=== PATIENT | female | born 1950 | race Caucasian/White ===

== ENCOUNTER 2017-05-19 06:15 | Day surgery (SDC) | payer MEDICARE, OTHER ==
[2017-05-12 14:01] VITALS: BMI 23.6
[2017-05-19] MEDS ORDERED: ceFAZolin IN SWFI 2 GM/20 ML SYRINGE IVP ONE (06:22)
[2017-05-19] MEDS ORDERED: LACTATED RINGERS 1,000 ML IV SCH (06:22)
[2017-05-19] MEDS ORDERED: ceFAZolin 1,000 MG in SODIUM CHLORIDE 0.9% IRRIGATIO 250 ML IRRIGATION ONE (06:22)
[2017-05-19] MEDS ORDERED: MIDAZOLAM 2 MG/2 ML VIAL ONE ×2 (07:10→07:25)
[2017-05-19] MEDS ORDERED: MIDAZOLAM 2 MG/2 ML VIAL IV ONE (07:12)
[2017-05-19] MEDS: SODIUM CHLORIDE 0.9% 1,000 ML IV SCH (07:13)
[2017-05-19] MEDS ORDERED: fentaNYL (PF) 50 MCG/ML 2 ML AMP ONE (07:25)
[2017-05-19] MEDS ORDERED: ePHEDrine SULFATE/0.9% NACL/PF 50 MG/5 ML SYRINGE IV ONE (07:25)
[2017-05-19] MEDS ORDERED: IODIXANOL 320 MG/ML 100 ML IV ONE (07:48)
[2017-05-19] MEDS ORDERED: LIDOCAINE 1% INJ 10MG/ML (20 ML MDV) SQ ONE (08:06)
[2017-05-19] MEDS ORDERED: LIDOCAINE 1% INJ 10MG/ML (20 ML MDV) IM ONE (08:12)
[2017-05-19] MEDS ORDERED: ACETAMINOPHEN IV (For NPO) 1,000 MG in EMPTY BAG 1 BAG IVPB ONE (09:02)
--- NOTE | 2017-05-19 09:55 | PCN ---
PROCEDURE NOTE A 66-year-old female with nonischemic cardiomyopathy with chronic systolic dysfunction, class 3 CHF with bradycardia who underwent a dual-chamber ICD for primary prevention of sudden cardiac . Patient is brought to the EP lab in a fasting state. Written informed consent was obtained prior to the procedure. The left shoulder area was prepped and draped as per protocol. 1% lidocaine was used for local anesthesia. A 4 cm incision was made parallel to the deltopectoral groove, about 1.5 cm medial to it. The incision was carried down to the level of the pectoralis muscle. A subfascial pocket was made. Hemostasis was assured. The left axillary vein was accessed at two separate points under fluoroscopy and via appropriately-sized introducer sheaths, 2 leads were positioned in the right heart. The atrial lead was a [employer], model #1944, 52 cm length and serial number [id number]. This was positioned in the right atrial appendage. P waves 2.8 mV, pacing impedance 560 ohms, pacing threshold 0.75 V at 0.5 milliseconds. 10 V test is negative. The ICD lead was a [employer], model #7122Q, 58 cm in length and serial number [id number], positioned in the low RV septum. R-waves 12 mV, pacing impedance 690 ohms, pacing threshold 0.5 V at 0.5 milliseconds. 10 V test is negative. Both leads are secured to the underlying pectoralis fascia using 2 nonabsorbable sutures. Pocket was irrigated with antibiotic solution. Leads were connected to the generator. The [employer], model number [id number], serial #[id number]. Leads and the generator were then placed in subfascial pocket and the wound was closed in 3 layers and dressed per protocol. RESULT: Successful dual chamber pacemaker implantation for primary prevention of sudden cardiac and sick sinus syndrome. PLAN: Maximize beta blockers if patient can tolerate this. Reduce amiodarone to 100 mg p.o. daily. Please note, DFT testing was deferred and will be performed in about 3 months after maximization of beta blockers now that she has the option for atrial pacing. MMODL / IJN: [id number] /
[2017-05-19] MEDS: HYDROcodone/APAP 5-325MG 1 EACH TAB PO PRN ×3 (10:44→19:45)
[2017-05-19] MEDS: ACETAMINOPHEN TAB 325 MG TAB PO PRN ×2 (14:41→22:37)
[2017-05-19] MEDS: SPIRONOLACTONE 25 MG TAB PO SCH (14:42)
[2017-05-19] MEDS: ceFAZolin IN SWFI 2 GM/20 ML SYRINGE IVP SCH ×2 (14:43→19:46)
[2017-05-19] MEDS ORDERED: IPRATROPIUM-ALBUTEROL 3 ML NEB INHALATION PRN (17:55)
--- NOTE | 2017-05-19 17:55 | P.CNPUL ---
History of Present Illness Consult date: 05/19/17 Requesting physician: Aravind Isaac Reason for consult: COPD Chief complaint: Status post dual chamber ICD implantation, history of COPD. History of present illness: This is a 66-year-old female with history of nonischemic cardiomyopathy and chronic systolic dysfunction class III congestive heart failure with bradycardia patient underwent dual-chamber ICD for primary prevention of sudden cardiac . Patient usually sees Dr. Thakur for COPD which is supposedly a goal stage III however the patient is not O2 dependent and not prednisone dependent. Her COPD seems to be quiet sent and inactive. However this consult was initiated for Dr. Thakur to evaluate for COPD and manage as needed. Presently the patient denies any cough no wheezing no shortness of breath, she saw Dr. Thakur few weeks ago, and her next appointment is in June. Patient denies any chest pain, no palpitations, no nausea no vomiting no abdominal pain no melena no hematemesis. In addition to COPD, patient is known to have history of fibromyalgia, GERD, rheumatoid arthritis, and previous history of congestive heart failure. Review of Systems 14 point review of systems were obtained, please refer to pertinent positives in HPI, otherwise other systems are negative Past Medical History Past Medical History: COPD, Fibromyalgia, GERD/Reflux, Myocardial Infarction ([place] ), Renal Disease Additional Past Medical History / Comment(s): HX RHEUMATIC FEVER, SCOLIOSIS, varicose veins, "kidney failure when in [facility] Feb 2017 Last Myocardial Infarction Date:: History of Any Multi-Drug Resistant Organisms: None Reported Past Surgical History: Heart Catheterization, Tubal Ligation Additional Past Surgical History / Comment(s): rt breast cyst removed- benign, hemorrhoidectomy Past Anesthesia/Blood Transfusion Reactions: No Reported Reaction Additional Past Anesthesia/Blood Transfusion Reaction / Comment(s): . Smoking Status: Former smoker - Past Family History Father Family Medical History: Cancer Additional Family Medical History / Comment(s): . Mother Family Medical History: Cancer, Congestive Heart Failure (CHF), Myocardial Infarction ([place]) Additional Family Medical History / Comment(s): BREAST Medications and Allergies Home Medications Medication Instructions Recorded Confirmed Type Aspirin 81 mg PO DAILY 11/21/14 05/19/17 History Famotidine [Pepcid] 20 mg PO BID 11/21/14 05/19/17 History Amiodarone HCl [Pacerone] 100 mg PO BID 05/12/17 05/19/17 History Fluticasone/Salmeterol [Advair Hfa 2 puff INHALATION BID 05/12/17 05/19/17 History 230-21 Mcg Inhaler] Furosemide [Lasix] 40 mg PO BID 05/12/17 05/19/17 History Ipratropium-Albuterol Nebulize 1 applicate INHALATION QID PRN 05/12/17 05/19/17 History [Duoneb 0.5 mg-3 mg/3 ml Soln] Losartan Potassium [Cozaar] 25 mg PO HS 05/12/17 05/19/17 History Metoprolol Tartrate [Lopressor] 50 mg PO BID 05/12/17 05/19/17 History Atorvastatin [Lipitor] 20 mg PO DAILY #30 tablet 05/19/17 Rx Spironolactone [Aldactone] 25 mg PO DAILY #30 tablet 05/19/17 Rx Allergies Allergy/AdvReac Type Severity Reaction Status Date / Time sulfamethoxazole Allergy Rash/Hives Verified 05/19/17 06:48 [From Bactrim] trimethoprim [From Bactrim] Allergy Rash/Hives Verified 05/19/17 06:48 Physical Exam Vitals: Vital Signs Temp Pulse Pulse Resp BP Pulse Ox 05/19/17 15:59 67 18 98/63 92 L 05/19/17 14:00 63 18 114/65 95 05/19/17 13:30 72 18 100/62 96 05/19/17 12:30 70 18 93/62 96 05/19/17 11:30 70 18 106/65 96 05/19/17 11:00 72 18 101/58 96 05/19/17 10:45 72 18 102/58 96 05/19/17 10:30 74 18 105/56 96 05/19/17 10:15 72 18 108/64 96 05/19/17 10:12 67 18 95 05/19/17 10:00 97.8 F 74 18 110/62 95 05/19/17 09:50 97.7 F 77 18 119/70 96 05/19/17 07:16 97.7 F 64 18 113/71 92 L Intake and Output 05/19/17 05/19/17 05/19/17 06:59 14:59 22:59 Intake Total 400 118 Output Total 100 Balance 400 18 Intake: IV 400 Oral 118 Output: Urine 100 Other: # Voids 1 Physical exam revealed a 66-year-old female in no distress, asymptomatic Head exam was generally normal. There was no scleral icterus or corneal arcus. Mucous membranes were moist.Neck was supple and without jugular venous distension, thyromegaly, or carotid bruits. Carotids were easily palpable bilaterally. There was no adenopathy. Lungs diminished breath sounds bilaterally along with some few bibasilar crackles. Cardiac exam revealed the PMI to be normally situated and sized. The rhythm was regular and no extrasystoles were noted during several minutes of auscultation. The first and second heart sounds were normal and physiologic splitting of the second heart sound was noted. There were no murmurs, rubs, clicks, or gallops. Abdominal exam revealed normal bowel sounds. The abdomen was soft, non-tender, and without masses, organomegaly, or appreciable enlargement of the abdominal aorta. Examination of the extremities revealed easily palpable radial, femoral and pedal pulses. There was no cyanosis, clubbing or edema. Neurologic: Alert and oriented 3, no gross focal neurologic deficits. Psychiatric: Normal mood affect and mental status examination. Lymphatics no adenopathy was appreciated. Assessment and Plan Assessment: Impression: 1 status post dual-chamber ICD implantation for history of nonischemic cardiomyopathy and LV dysfunction. Postoperative day #0. 2 history of gold stage III COPD, presently inactive. 3 history of multiple comorbidities including rheumatoid arthritis, fibromyalgia , degenerative disc disease Recommendation: Continue present treatment plan, will place the patient on DuoNeb updrafts 4 times a day and when necessary, and the patient to go back on her usual meds postdischarge and keep her appointment as scheduled with Dr. Thakur. Time with Patient: Greater than 30
[2017-05-19] MEDS: FUROSEMIDE 40 MG TAB PO SCH (19:46)
[2017-05-19] MEDS: METOPROLOL TARTRATE 50 MG TAB PO SCH (19:46)
[2017-05-19] MEDS ORDERED: LOSARTAN 25 MG TAB PO SCH (21:00)
[2017-05-19] MEDS ORDERED: ATORVASTATIN 20 MG TAB PO SCH (21:00)
[2017-05-20] MEDS: HYDROcodone/APAP 5-325MG 1 EACH TAB PO PRN ×4 (00:02→12:30)
[2017-05-20] MEDS: ceFAZolin IN SWFI 2 GM/20 ML SYRINGE IVP SCH ×2 (02:05→07:51)
[2017-05-20] MEDS: ACETAMINOPHEN TAB 325 MG TAB PO PRN (06:52)
[2017-05-20] MEDS: SODIUM CHLORIDE 0.9% 1,000 ML IV SCH (06:53)
[2017-05-20] MEDS: FUROSEMIDE 40 MG TAB PO SCH (07:51)
[2017-05-20] MEDS: METOPROLOL TARTRATE 50 MG TAB PO SCH (07:51)
[2017-05-20] MEDS: SPIRONOLACTONE 25 MG TAB PO SCH (07:51)
[2017-05-20 08:00] VITALS: RESP 18
--- NOTE | 2017-05-20 08:59 | XR ---
EXAMINATION TYPE: XR chest 2V DATE OF EXAM: 05/20/2017 COMPARISON: 03/03/2015 TECHNIQUE: PA and lateral views submitted. HISTORY: Lead placement FINDINGS: The lungs are clear and there is no pneumothorax, pleural effusion, or focal pneumonia. Hyperinflat ion suggests COPD and there is prominence of both hilum likely reflecting thoracic aortic ectasia or aneurysm. Double lead cardiac device seen with the proximal lead overlying the right atrium and dista l lead overlying the right ventricle. Degenerative change of the spine noted. IMPRESSION: 1. Pacemaker appears in good position with no postprocedural complication. 2. Prominence of the hilum bilaterally likely reflects aortic ectasia or aneurysm correlate clinicall y.
[2017-05-20] MEDS ORDERED: ASPIRIN 81 MG PO SCH (09:00)
--- NOTE | 2017-05-20 09:01 | P.DS ---
Providers Attending physician: Aravind Isaac Primary care physician: [facility] Course: Patient is doing well. She has mild discomfort in the ICD site but there is no swelling or hematoma. Vitals are stable no chest discomfort no undue shortness of breath She's afebrile 97.9F, pulse rate in the 70s, normal respirations blood pressure 107/68 mmHg Heart sounds are normal no murmurs or gallops Sounds are clear no rhonchi no crackles Abdomen is soft nontender Extremities warm no edema ICD site is healing well and is now soakage no hematoma Impression Cardiomyopathy, chronic heart failure status post ICD yesterday, dual-chamber for management of bradycardia and for primary prevention of sudden cardiac Plan DC home after completion of IV antibiotics, interrogation of the device and chest x-ray. New medications include atorvastatin 20 mg by mouth daily and spironolactone 25 mg a day. Follow-up in the device clinic in [address] Vanegas as scheduled Plan - Discharge Summary Discharge Rx Participant: No New Discharge Prescriptions: New RX: Atorvastatin [Lipitor] 20 mg PO DAILY #30 tablet Spironolactone [Aldactone] 25 mg PO DAILY #30 tablet Continue RX: Famotidine [Pepcid] 20 mg PO BID RX: Aspirin 81 mg PO DAILY RX: Fluticasone/Salmeterol [Advair Hfa 230-21 Mcg Inhaler] 2 puff INHALATION BID RX: Losartan Potassium [Cozaar] 25 mg PO HS RX: Amiodarone HCl [Pacerone] 100 mg PO BID RX: Metoprolol Tartrate [Lopressor] 50 mg PO BID RX: Furosemide [Lasix] 40 mg PO BID RX: Ipratropium-Albuterol Nebulize [Duoneb 0.5 mg-3 mg/3 ml Soln] 1 applicate INHALATION QID PRN PRN Reason: sob Discharge Medication List RX: Aspirin 81 mg PO DAILY 11/21/14 [History] RX: Famotidine [Pepcid] 20 mg PO BID 11/21/14 [History] RX: Amiodarone HCl [Pacerone] 100 mg PO BID 05/12/17 [History] RX: Fluticasone/Salmeterol [Advair Hfa 230-21 Mcg Inhaler] 2 puff INHALATION BID 05/12/17 [History] RX: Furosemide [Lasix] 40 mg PO BID 05/12/17 [History] RX: Ipratropium-Albuterol Nebulize [Duoneb 0.5 mg-3 mg/3 ml Soln] 1 applicate INHALATION QID PRN 05/12/17 [History] RX: Losartan Potassium [Cozaar] 25 mg PO HS 05/12/17 [History] RX: Metoprolol Tartrate [Lopressor] 50 mg PO BID 05/12/17 [History] RX: Atorvastatin [Lipitor] 20 mg PO DAILY #30 tablet 05/19/17 [Rx] Spironolactone [Aldactone] 25 mg PO DAILY #30 tablet 05/19/17 [Rx] Follow up Appointment(s)/Referral(s): Queenie Vanegas MD [STAFF PHYSICIAN] - 05/26/17 4:00 pm (This is a device check only. Office will call with your follow up time for Dr. MATIAS Vanegas) Ozzy Thakur DO [Doctor of Osteopathic Medicine] - 06/25/17 1:30 pm (This was a previously scheduled appointment) Patient Instructions/Handouts: Implantable Cardioverter Defibrillator (DC) Activity/Diet/Wound Care/Special Instructions: PATIENT EDUCATION MATERIAL Instructions following a heart rhythm device implant. 1. Keep dressing DRY for ONE week. You may cover the area with Saran or Cling Wrap, prior to a shower. 2. The dressing will be removed after one week in the Device Clinic @ [facility]. Absorbable sutures were used to close the wound. 3. Avoid raising the [left] arm above the shoulder level. [6 week restriction] 4. Avoid arm movements, like backscratching, rubbing the head, or pulling on a cord. (6 weeks restriction) 5. Gentle range of motion movements of the shoulder, closest to the incision should be performed to avoid a frozen shoulder. (Pendulum exercises of the shoulder) 6. The opposite arm may be used freely. 7. Avoid driving for 7 days. 8. Avoid activities such as golfing, swimming, weed whacking, lifting more than 10 pounds weight, bowling, gymnastics and weight training/lifting. (6 weeks restriction) 9. Activities such as wood chopping with an axe, pull-ups in the gymnasium, power lifting, arc-welding, being close to home induction cooktops will always be a problem. In case of any problems, please call [facility], Cristina Wallace, @ [phone], Attention: Device Clinic New medications Spironolactone 25 mg by mouth daily Atorvastatin 20 mg by mouth daily Discharge Disposition: HOME SELF-CARE
[2017-05-20 11:21] VITALS: BP 100/68; PULSE 70; TEMP 98.4
--- NOTE | 2017-05-20 12:17 | P.CRDCN ---
History of Present Illness History of present illness: Impression Preserved LV systolic function Severely dilated left atrium Current smoker Cocaine positive in the urine Uncontrolled hypertension Negative for DVT by venous Dopplers CKD stage III Suggest Stop verapamil and start Procardia XL 90 mg by mouth daily Avoid beta blockers for now but I would treat him with losartan or an JEANNETTE inhibitor since he has seen daily See full dictation by Dr. acosta Past Medical History Past Medical History: COPD, Fibromyalgia, GERD/Reflux, Myocardial Infarction ([place] ), Renal Disease Additional Past Medical History / Comment(s): HX RHEUMATIC FEVER, SCOLIOSIS, varicose veins, "kidney failure when in [facility] Feb 2017 Last Myocardial Infarction Date:: History of Any Multi-Drug Resistant Organisms: None Reported Past Surgical History: Heart Catheterization, Tubal Ligation Additional Past Surgical History / Comment(s): rt breast cyst removed- benign, hemorrhoidectomy Past Anesthesia/Blood Transfusion Reactions: No Reported Reaction Additional Past Anesthesia/Blood Transfusion Reaction / Comment(s): . Smoking Status: Former smoker - Past Family History Father Family Medical History: Cancer Additional Family Medical History / Comment(s): . Mother Family Medical History: Cancer, Congestive Heart Failure (CHF), Myocardial Infarction ([place]) Additional Family Medical History / Comment(s): BREAST Medications and Allergies Home Medications Medication Instructions Recorded Confirmed Type Aspirin 81 mg PO DAILY 11/21/14 05/19/17 History Famotidine [Pepcid] 20 mg PO BID 11/21/14 05/19/17 History Amiodarone HCl [Pacerone] 100 mg PO BID 05/12/17 05/19/17 History Fluticasone/Salmeterol [Advair Hfa 2 puff INHALATION BID 05/12/17 05/19/17 History 230-21 Mcg Inhaler] Furosemide [Lasix] 40 mg PO BID 05/12/17 05/19/17 History Ipratropium-Albuterol Nebulize 1 applicate INHALATION QID PRN 05/12/17 05/19/17 History [Duoneb 0.5 mg-3 mg/3 ml Soln] Losartan Potassium [Cozaar] 25 mg PO HS 05/12/17 05/19/17 History Metoprolol Tartrate [Lopressor] 50 mg PO BID 05/12/17 05/19/17 History Atorvastatin [Lipitor] 20 mg PO DAILY #30 tablet 05/19/17 Rx Spironolactone [Aldactone] 25 mg PO DAILY #30 tablet 05/19/17 Rx Allergies Allergy/AdvReac Type Severity Reaction Status Date / Time sulfamethoxazole Allergy Rash/Hives Verified 05/19/17 06:48 [From Bactrim] trimethoprim [From Bactrim] Allergy Rash/Hives Verified 05/19/17 06:48 Physical Exam Vitals: Vital Signs Temp Pulse Pulse Resp BP Pulse Ox 05/20/17 11:20 98.4 F 70 18 100/68 96 05/20/17 07:51 97.9 F 74 18 96/64 92 L 05/20/17 04:00 98.2 F 68 16 107/68 93 L 05/20/17 00:00 97.4 F L 69 16 110/74 95 05/19/17 21:03 70 05/19/17 20:54 68 05/19/17 20:00 98.0 F 74 18 115/59 93 L 05/19/17 15:59 67 18 98/63 92 L 05/19/17 14:00 63 18 114/65 95 05/19/17 13:30 72 18 100/62 96 05/19/17 12:30 70 18 93/62 96 Intake and Output 05/19/17 05/20/17 05/20/17 22:59 06:59 14:59 Intake Total 118 118 Output Total 700 400 425 Balance -582 -400 -307 Intake: Oral 118 118 Output: Urine 700 400 425 Other: Voiding Method Toilet Toilet # Voids 2 1 Weight 77.8 kg Results Current Medications Generic Name Dose Route Start Last Admin Trade Name Freq PRN Reason Stop Dose Admin Acetaminophen 650 mg 05/19/17 16:00 05/20/17 06:52 Tylenol Tab PO 650 mg Q8HR PRN Administration Mild Pain Hydrocodone Bitart/Acetaminophen 1 each 05/19/17 09:02 05/20/17 08:47 [place] 5-325 PO 1 each Q4HR PRN Administration Pain Albuterol/Ipratropium 3 ml 05/19/17 17:55 05/19/17 20:54 Duoneb 0.5 Mg-3 Mg/3 Ml Soln INHALATION 3 ml RT-QID PRN Administration Shortness Of Breath Or Wheezing Aspirin 81 mg 05/20/17 09:00 05/20/17 07:51 Aspirin PO 81 mg DAILY IDA Administration Atorvastatin Calcium 20 mg 05/19/17 21:00 05/19/17 19:46 Lipitor PO 20 mg HS IDA Administration Furosemide 40 mg 05/19/17 21:00 05/20/17 07:51 Lasix PO 40 mg BID IDA Administration Sodium Chloride 1,000 mls @ 20 mls/hr 05/19/17 06:22 05/20/17 06:53 Saline 0.9% IV 20 mls/hr .Q24H IDA Administration Losartan Potassium 25 mg 05/19/17 21:00 05/19/17 20:37 Cozaar PO 25 mg HS IDA Administration Metoprolol Tartrate 50 mg 05/19/17 21:00 05/20/17 07:51 Lopressor PO 50 mg BID IDA Administration Sodium Chloride 10 ml 05/19/17 21:00 05/20/17 07:51 Saline Flush IV 10 ml Q12HR IDA Administration Spironolactone 25 mg 05/19/17 09:15 05/20/17 07:51 Aldactone PO 25 mg DAILY IDA Administration Intake and Output 05/19/17 05/20/17 05/20/17 22:59 06:59 14:59 Intake Total 118 118 Output Total 700 400 425 Balance -334 -217 -990 Intake: Oral 118 118 Output: Urine 700 400 425 Other: Voiding Method Toilet Toilet # Voids 2 1 Weight 77.8 kg
== END 2017-05-20 12:36 | disposition home or self-care (01) ==
LOC: CATHEP 06:15 → 6SEL 09:00 → 3OBS 09:00 → CATHEP 05-20 12:36
PROVIDERS: ATTEND Internal Medicine Clinical Cardiac Electrophysiology
DX: I49.5 Sick sinus syndrome (principal); Z00.6 Encounter for examination for normal comparison and control in clinical research program; I13.0 Hypertensive heart and chronic kidney disease with heart failure and stage 1 through stage 4 chronic kidney disease, or unspecified chronic kidney disease; I50.22 Chronic systolic (congestive) heart failure; N18.3 Chronic kidney disease, stage 3 (moderate); N17.9 Acute kidney failure, unspecified; Z87.891 Personal history of nicotine dependence; R59.9 Enlarged lymph nodes, unspecified; J44.9 Chronic obstructive pulmonary disease, unspecified; M79.7 Fibromyalgia; K21.9 Gastro-esophageal reflux disease without esophagitis; M06.9 Rheumatoid arthritis, unspecified; E78.5 Hyperlipidemia, unspecified; Z79.82 Long term (current) use of aspirin; Z79.51 Long term (current) use of inhaled steroids; Z79.899 Other long term (current) drug therapy; Z88.2 Allergy status to sulfonamides
CPT/HCPCS: 94640; 33249; 71020; C1892; C1777; C1721; C1898; C1769; J2250; Q9967; J0690 ×2; J2001

== ENCOUNTER 2019-11-03 09:26 | Inpatient (IN) | payer MEDICARE, OTHER ==
[2019-11-03 10:28] LABS: Albumin 4.2 g/dL (3.5-5.0); Calcium 9.7 mg/dL (8.4-10.2); Potassium 4.8 mmol/L (3.5-5.1); Total Bilirubin 0.7 mg/dL (0.2-1.3); Total Protein 6.9 g/dL (6.3-8.2)
[2019-11-03 10:33] LABS: Prothrombin Time 10.1 sec (9.0-12.0)
[2019-11-03 10:41] LABS: Basophils % (A) 1 %; Eosinophils # (A) 0.3 k/uL (0-0.7); Eosinophils % (A) 4 %; HCT 26.9 % (34.0-46.0); HGB 7.7 gm/dL (11.4-16.0); Hypochromasia Marked; Lymphocytes # (A) 1.7 k/uL (1.0-4.8); Lymphocytes % (A) 28 %; MCH 22.4 pg (25.0-35.0); MCHC 28.6 g/dL (31.0-37.0); MCV 78.3 fL (80.0-100.0); Mean Platelet Volume 8.4; Monocytes # (A) 0.5 k/uL (0-1.0); Monocytes % (A) 8 %; Neutrophils # (A) 3.6 k/uL (1.3-7.7); Neutrophils % (A) 58 %; Platelet Count 432 k/uL (150-450); Poikilocytosis Slight; RBC 3.44 m/uL (3.80-5.40); RDW 15.6 % (11.5-15.5); WBC 6.2 k/uL (3.8-10.6)
--- NOTE | 2019-11-03 10:42 | ED ---
General Adult HPI - General Chief complaint: Recheck/Abnormal Lab/Rx Stated complaint: Needs blood transfusion Time Seen by Provider: 11/03/19 09:30 Source: patient Mode of arrival: wheelchair Limitations: physical limitation - History of Present Illness Initial comments: The patient is a 69-year-old female with past medical history of COPD, fibromyalgia and OR who presents to the emergency room with reported abnormal lab studies. She states that she went to her primary care office yesterday for a normal follow-up visit. Lab work was completed. She received a call this morning stating that her hemoglobin was low and the patient's kidney function was off. She was instructed to come into the emergency room for further evaluation. She does report to a two-month history of generalized weakness with exertional shortness of breath. She denies a history of anemia her previous blood transfusions. Denies any melenic stools or hematochezia. No history of iron deficiency. The patient had a colonoscopy 2 years ago which demonstrated one polyp which was removed. The patient also reports to chronic kidney disease however she was told it was worsened at this time. She is supposed to follow up with Dr. Schafer in office however due to the pandemia She has been unable to. She denies dysuria, hematuria or diplopia voiding. Denies any abdominal pain. No back or flank pain. She has a history of COPD and uses 2 L oxygen at home as needed however reports that her exertional shortness of breath has become worse. She denies chest pain. No cough or hemoptysis. There are no other alleviating, precipitating or modifying factors - Related Data Home Medications Medication Instructions Recorded Confirmed Aspirin 81 mg PO DAILY 11/21/14 11/03/19 Famotidine [Pepcid] 20 mg PO BID 11/21/14 11/03/19 Fluticasone/Salmeterol [Advair Hfa 2 puff INHALATION RT-BID 05/12/17 11/03/19 230-21 Mcg Inhaler] Furosemide [Lasix] 40 mg PO QAM@0600 05/12/17 11/03/19 Ipratropium-Albuterol Nebulize 1 puff INHALATION RT-QID PRN 05/12/17 11/03/19 [Duoneb 0.5 mg-3 mg/3 ml Soln] Losartan Potassium [Cozaar] 25 mg PO DAILY 05/12/17 11/03/19 Metoprolol Tartrate [Lopressor] 50 mg PO BID 05/12/17 11/03/19 Aspirin/Acetaminophen/Caffeine 2 tab PO ONCE PRN 11/03/19 11/03/19 [Excedrin Extra Strength Caplet] Fluticasone Propionate 2 spray EA NOSTRIL DAILY 11/03/19 11/03/19 Furosemide [Lasix] 20 mg PO DAILY@1400 11/03/19 11/03/19 HYDROcodone/APAP 7.5-325MG [[place] 1 tab PO Q6H PRN 11/03/19 11/03/19 7.5-325] predniSONE 5 mg PO DAILY 11/03/19 11/03/19 Previous Rx's Medication Instructions Recorded Atorvastatin [Lipitor] 20 mg PO DAILY #30 tablet 05/19/17 Spironolactone [Aldactone] 25 mg PO DAILY #30 tablet 05/19/17 Allergies Allergy/AdvReac Type Severity Reaction Status Date / Time sulfamethoxazole Allergy Rash/Hives Verified 11/03/19 12:36 [From Bactrim] trimethoprim [From Bactrim] Allergy Rash/Hives Verified 11/03/19 12:36 Review of Systems ROS Statement: Those systems with pertinent positive or pertinent negative responses have been documented in the HPI. ROS Other: All systems not noted in ROS Statement are negative. Past Medical History Past Medical History: COPD, Fibromyalgia, GERD/Reflux, Myocardial Infarction (OR), Renal Disease Additional Past Medical History / Comment(s): HX RHEUMATIC FEVER, SCOLIOSIS, varicose veins, "kidney failure when in [place] Feb 2017 Last Myocardial Infarction Date:: History of Any Multi-Drug Resistant Organisms: None Reported Past Surgical History: Heart Catheterization, Tubal Ligation Additional Past Surgical History / Comment(s): rt breast cyst removed- benign, hemorrhoidectomy Past Anesthesia/Blood Transfusion Reactions: No Reported Reaction Additional Past Anesthesia/Blood Transfusion Reaction / Comment(s): . Past Psychological History: Anxiety Smoking Status: Former smoker Past Alcohol Use History: None Reported Past Drug Use History: None Reported - Past Family History Father Family Medical History: Cancer Additional Family Medical History / Comment(s): . Mother Family Medical History: Cancer, Congestive Heart Failure (CHF), Myocardial Infarction (OR) Additional Family Medical History / Comment(s): BREAST General Exam Limitations: physical limitation General appearance: alert, in no apparent distress Head exam: Present: atraumatic, normocephalic, normal inspection Eye exam: Present: normal appearance, PERRL, EOMI. Absent: scleral icterus, conjunctival injection, periorbital swelling ENT exam: Present: normal exam, mucous membranes moist Neck exam: Present: normal inspection. Absent: tenderness, meningismus, lymphadenopathy Respiratory exam: Present: normal lung sounds bilaterally. Absent: respiratory distress, wheezes, rales, rhonchi, stridor Cardiovascular Exam: Present: regular rate, normal rhythm, normal heart sounds. Absent: systolic murmur, diastolic murmur, rubs, gallop, clicks GI/Abdominal exam: Present: soft, normal bowel sounds. Absent: distended, tenderness, guarding, rebound, rigid Rectal exam: Present: normal inspection, normal rectal tone, heme (+) stool, tenderness Extremities exam: Present: normal inspection, full ROM, normal capillary refill. Absent: tenderness, pedal edema, joint swelling, calf tenderness Back exam: Present: normal inspection Neurological exam: Present: alert, oriented X3, CN II-XII intact Psychiatric exam: Present: normal affect, normal mood Skin exam: Present: warm, dry, intact, normal color, pallor. Absent: rash Course Vital Signs 11/03/19 11/03/19 11/03/19 09:30 09:46 10:00 Temperature 98.3 F Pulse Rate 100 106 H 80 Respiratory 18 14 11 L Rate Blood Pressure 117/76 108/80 O2 Sat by Pulse 97 96 94 L Oximetry 11/03/19 11/03/19 11/03/19 10:30 11:00 11:30 Temperature Pulse Rate 78 85 80 Respiratory 14 19 13 Rate Blood Pressure 108/77 111/77 117/78 O2 Sat by Pulse 93 L 93 L 96 Oximetry 11/03/19 11/03/19 11/03/19 11:40 12:00 12:30 Temperature Pulse Rate 82 93 Respiratory 18 13 27 H Rate Blood Pressure 118/75 115/79 O2 Sat by Pulse 96 96 Oximetry 11/03/19 11/03/19 11/03/19 13:00 13:30 13:40 Temperature 98.1 F 98.1 F 98.1 F Pulse Rate 97 99 88 Respiratory 17 18 18 Rate Blood Pressure 133/81 113/78 116/77 O2 Sat by Pulse 98 96 95 Oximetry 11/03/19 13:48 Temperature 98.2 F Pulse Rate 91 Respiratory 18 Rate Blood Pressure 111/86 O2 Sat by Pulse 96 Oximetry EKG Findings - EKG Comments: EKG Findings:: EKG demonstrates normal sinus rhythm with ventricular rate of 80. [place] interval 160. QRS 102. QTC of 440. Mild ST depression in V2 through V6. No acute ST segment elevations. Medical Decision Making - Medical Decision Making Upon arrival the patient is placed into room 9. Thorough history and physical exam is performed. Patient hooked to continuous pulse ox and cardiac monitoring. A did complete a rectal exam which demonstrates brown stool. Sample sent for occult testing. Laboratory studies were obtained which demonstrated a hemoglobin of 7.7. MCV 78.3. Creatinine 1.6 which is improved from patient's previous measurements. BUN 19. Fecal occult is positive. Chest x-ray demonstrates COPD however no acute intrathoracic findings. I did discuss results with the patient. As she is symptomatic I did recommend transfusion of one unit of blood for which the patient did agree. I also recommended hospital admission for GI consultation and to trend the patient's Hemoccult was for which the patient did agree. I called and discuss case with Dr. Maria who accepted admission for the patient. She is currently awaiting a bed on the floor - Lab Data Result diagrams: 11/04/19 07:04 11/04/19 07:04 Lab Results 11/03/19 11/03/19 11/03/19 Range/Units 09:53 09:53 09:53 WBC 6.2 (3.8-10.6) k/uL RBC 3.44 L (3.80-5.40) m/uL Hgb 7.7 L (11.4-16.0) gm/dL Hct 26.9 L (34.0-46.0) % MCV 78.3 L (80.0-100.0) fL MCH 22.4 L (25.0-35.0) pg MCHC 28.6 L (31.0-37.0) g/dL RDW 15.6 H (11.5-15.5) % Plt Count 432 (150-450) k/uL Neutrophils % 58 % Lymphocytes % 28 % Monocytes % 8 % Eosinophils % 4 % Basophils % 1 % Neutrophils # 3.6 (1.3-7.7) k/uL Lymphocytes # 1.7 (1.0-4.8) k/uL Monocytes # 0.5 (0-1.0) k/uL Eosinophils # 0.3 (0-0.7) k/uL Basophils # 0.0 (0-0.2) k/uL Hypochromasia Marked Poikilocytosis Slight PT 10.1 (9.0-12.0) sec INR 1.0 (<1.2) APTT 20.8 L (22.0-30.0) sec Sodium 137 (137-145) mmol/L Potassium 4.8 (3.5-5.1) mmol/L Chloride 109 H (98-107) mmol/L Carbon Dioxide 19 L (22-30) mmol/L Anion Gap 9 mmol/L BUN 19 H (7-17) mg/dL Creatinine 1.61 H (0.52-1.04) mg/dL Est GFR (CKD-EPI)AfAm 37 (>60 ml/min/1.73 sqM) Est GFR (CKD-EPI)NonAf 32 (>60 ml/min/1.73 sqM) Glucose 113 H (74-99) mg/dL Plasma Lactic Acid Hernandez (0.7-2.0) mmol/L Calcium 9.7 (8.4-10.2) mg/dL Total Bilirubin 0.7 (0.2-1.3) mg/dL AST 20 (14-36) U/L ALT 15 (4-34) U/L Alkaline Phosphatase 79 (38-126) U/L Troponin I (0.000-0.034) ng/mL Total Protein 6.9 (6.3-8.2) g/dL Albumin 4.2 (3.5-5.0) g/dL Stool Occult Blood (Negative) Blood Type Blood Type Confirm Blood Type Recheck Bld Type Recheck Status Antibody Screen Crossmatch Spec Expiration Date 11/03/19 11/03/19 11/03/19 Range/Units 09:53 09:53 09:53 WBC (3.8-10.6) k/uL RBC (3.80-5.40) m/uL Hgb (11.4-16.0) gm/dL Hct (34.0-46.0) % MCV (80.0-100.0) fL MCH (25.0-35.0) pg MCHC (31.0-37.0) g/dL RDW (11.5-15.5) % Plt Count (150-450) k/uL Neutrophils % % Lymphocytes % % Monocytes % % Eosinophils % % Basophils % % Neutrophils # (1.3-7.7) k/uL Lymphocytes # (1.0-4.8) k/uL Monocytes # (0-1.0) k/uL Eosinophils # (0-0.7) k/uL Basophils # (0-0.2) k/uL Hypochromasia Poikilocytosis PT (9.0-12.0) sec INR (<1.2) APTT (22.0-30.0) sec Sodium (137-145) mmol/L Potassium (3.5-5.1) mmol/L Chloride (98-107) mmol/L Carbon Dioxide (22-30) mmol/L Anion Gap mmol/L BUN (7-17) mg/dL Creatinine (0.52-1.04) mg/dL Est GFR (CKD-EPI)AfAm (>60 ml/min/1.73 sqM) Est GFR (CKD-EPI)NonAf (>60 ml/min/1.73 sqM) Glucose (74-99) mg/dL Plasma Lactic Acid Hernandez 2.0 (0.7-2.0) mmol/L Calcium (8.4-10.2) mg/dL Total Bilirubin (0.2-1.3) mg/dL AST (14-36) U/L ALT (4-34) U/L Alkaline Phosphatase (38-126) U/L Troponin I <0.012 (0.000-0.034) ng/mL Total Protein (6.3-8.2) g/dL Albumin (3.5-5.0) g/dL Stool Occult Blood (Negative) Blood Type A Positive Blood Type Confirm Blood Type Recheck No Previous Record Bld Type Recheck Status CABO Indicated Antibody Screen NEGATIVE Crossmatch See Detail Spec Expiration Date 11/06/2019 - 235211/03/19 11/03/19 Range/Units 09:58 10:32 WBC (3.8-10.6) k/uL RBC (3.80-5.40) m/uL Hgb (11.4-16.0) gm/dL Hct (34.0-46.0) % MCV (80.0-100.0) fL MCH (25.0-35.0) pg MCHC (31.0-37.0) g/dL RDW (11.5-15.5) % Plt Count (150-450) k/uL Neutrophils % % Lymphocytes % % Monocytes % % Eosinophils % % Basophils % % Neutrophils # (1.3-7.7) k/uL Lymphocytes # (1.0-4.8) k/uL Monocytes # (0-1.0) k/uL Eosinophils # (0-0.7) k/uL Basophils # (0-0.2) k/uL Hypochromasia Poikilocytosis PT (9.0-12.0) sec INR (<1.2) APTT (22.0-30.0) sec Sodium (137-145) mmol/L Potassium (3.5-5.1) mmol/L Chloride (98-107) mmol/L Carbon Dioxide (22-30) mmol/L Anion Gap mmol/L BUN (7-17) mg/dL Creatinine (0.52-1.04) mg/dL Est GFR (CKD-EPI)AfAm (>60 ml/min/1.73 sqM) Est GFR (CKD-EPI)NonAf (>60 ml/min/1.73 sqM) Glucose (74-99) mg/dL Plasma Lactic Acid Hernandez (0.7-2.0) mmol/L Calcium (8.4-10.2) mg/dL Total Bilirubin (0.2-1.3) mg/dL AST (14-36) U/L ALT (4-34) U/L Alkaline Phosphatase (38-126) U/L Troponin I (0.000-0.034) ng/mL Total Protein (6.3-8.2) g/dL Albumin (3.5-5.0) g/dL Stool Occult Blood Positive H (Negative) Blood Type Blood Type Confirm A Positive Blood Type Recheck Bld Type Recheck Status Antibody Screen Crossmatch Spec Expiration Date Disposition Clinical Impression: Acute renal failure, Weakness, Anemia, GI bleed Disposition: ADMITTED IP TO THIS [facility] Condition: Stable Is patient prescribed a controlled substance at d/c from ED?: No Decision to Admit Reason: Admit from EC Decision Date: 11/03/19 Decision Time: 12:25
[2019-11-03 10:43] LABS: Partial Thromboplastin Time 20.8 sec (22.0-30.0)
[2019-11-03] MEDS ORDERED: NALOXONE 0.4 MG/ML 1 ML VIAL IV PRN (12:28)
--- NOTE | 2019-11-03 13:02 | XR ---
EXAMINATION TYPE: XR chest 2V DATE OF EXAM: 11/03/2019 COMPARISON: 05/20/2017 INDICATION: Cough, pain history of COPD TECHNIQUE: Frontal and lateral views of the chest are obtained. FINDINGS: Cardiomediastinal silhouette is stable. There is likely some tortuosity the aorta. Pacemaker overlies left chest.. The pulmonary vasculature is normal. The lungs are clear. For inflation flattening the diaphragms is evident. IMPRESSION: 1. No acute pulmonary process. 2. COPD
[2019-11-03] MEDS: HYDROcodone/APAP 7.5-325MG 1 EACH TAB PO PRN (20:27)
[2019-11-03 20:48] LABS: Amorphous Sediment,Urine Occasional /hpf; Appearance,Urine Clear (Clear); Bilirubin,Urine Negative (Negative); Blood,Urine Trace (Negative); Color,Urine Yellow; Glucose,Urine (UA) Negative (Negative); Hyaline Casts,Urine 7 /lpf (0-2); Ketones,Urine Negative (Negative); Leukocyte Esterase,Urine Large (Negative); Mucus,Urine Rare /hpf; Nitrite,Urine Negative (Negative); Protein,Urine Negative (Negative); RBC,Urine 8 /hpf (0-5); Squamous Epithelial Cell,Urine 4 /hpf (0-4); Urobilinogen,Urine <2.0 mg/dL (<2.0); WBC,Urine 60 /hpf (0-5)
[2019-11-03] MEDS ORDERED: FAMOTIDINE 20 MG TAB PO SCH (21:00)
[2019-11-03] MEDS: METOPROLOL TARTRATE 50 MG TAB PO SCH (21:24)
[2019-11-03] MEDS: IPRATROPIUM-ALBUTEROL 3 ML NEB INHALATION SCH (21:45)
--- NOTE | 2019-11-03 22:22 | P.HPIM ---
History of Present Illness H&P Date: 11/03/19 Chief Complaint: Tiredness Patient is a 69-year-old female with a known history of COPD on home oxygen 2 L as needed, CHF, AICD placement fibromyalgia, GERD, history of IA, anxiety and previous history of smoking came to ER with the complaints of abnormal lab tests and was called from PCPs office to go to ER. Patient was told her hemoglobin was low and also she has acute kidney injury. Patient came to ER for evaluation. Patient had lab work-up done yesterday due to patient's complaint of tiredness and weakness for the past 2 months. Patient is also having decreased appetite. Patient is also having exertional shortness of breath. Denies any hematemesis melena. Denied any hemorrhoids history. Patient had colonoscopy 2 years ago which demonstrated 1 polyp which was removed. Patient does have chronic kidney disease otherwise. Patient is supposed to follow-up with Dr. Floyd's office however due to dynamic she has been unable to do so. Patient denied any complaints of chest pain. No shortness of breath at rest. No cough or sputum production. Denied any hemoptysis. Denied any dysuria or hematuria. Denied any focal weakness. No complaints of dizziness or lightheadedness. Chest x-ray showed no acute pulmonary process. COPD. EKG showed normal sinus rhythm Laboratory data showed WBC 6.2, hemoglobin 7.7, MCV 78.3 and platelets 432 Sodium 137, potassium 4.8, chloride 109, bicarb is 19, BUN 19 and creatinine 1.61 troponin x1- Lactic acid 2.0 Liver enzymes are not elevated Urinalysis showed large leukoesterase 8 RBCs and 60 WBCs FOBT positive. Patient was tachycardic on admission. Review of Systems Constitutional: Patient denies any fever or chills . Generalized weakness and tiredness. Abdomen: Patient denied nausea vomiting and diarrhea and abdominal pain. Cardiovascular: Patient denies any chest pain or short of breath no palpitations. Respiratory: patient denied any cough is from production. No shortness of breath Neurologic: Patient denied any numbness or tingling. Musculoskeletal: Patient denies any complaints of joint swelling or deformity. Skin: Negative Psychiatric: Negative Endocrine: No heat or cold intolerance. No recent weight gain. Genitourinary: No dysuria or hematuria. All other 14 point ROS negative except the above Past Medical History Past Medical History: Heart Failure, COPD, Fibromyalgia, GERD/Reflux, Myocardial Infarction (IA), Renal Disease Additional Past Medical History / Comment(s): HX RHEUMATIC FEVER, SCOLIOSIS, varicose veins, "kidney failure when in [place] Feb 2015 Last Myocardial Infarction Date:: History of Any Multi-Drug Resistant Organisms: None Reported Past Surgical History: AICD, Heart Catheterization, Pacemaker, Tubal Ligation Additional Past Surgical History / Comment(s): rt breast cyst removed- benign, hemorrhoidectomy cardiac pacer/ defibulator Past Anesthesia/Blood Transfusion Reactions: No Reported Reaction Additional Past Anesthesia/Blood Transfusion Reaction / Comment(s): . Type of Cardiac Device: Permanent Pacemaker, AICD Device Placement Date:: 2015 Past Psychological History: Anxiety Additional Psychological History / Comment(s): CLAUSTROPHOBIA, ANXIETY R/T PROCEDURES Smoking Status: Former smoker Past Alcohol Use History: None Reported Additional Past Alcohol Use History / Comment(s): quit smoking 3 yrs ago, smoked for 45 yrs, < 1 PPD Past Drug Use History: None Reported - Past Family History Father Family Medical History: Cancer Additional Family Medical History / Comment(s): . Mother Family Medical History: Cancer, Congestive Heart Failure (CHF), Myocardial Infarction (IA) Additional Family Medical History / Comment(s): BREAST Medications and Allergies Home Medications Medication Instructions Recorded Confirmed Type Aspirin 81 mg PO DAILY 11/21/14 11/03/19 History Famotidine [Pepcid] 20 mg PO BID 11/21/14 11/03/19 History Fluticasone/Salmeterol [Advair Hfa 2 puff INHALATION RT-BID 05/12/17 11/03/19 History 230-21 Mcg Inhaler] Furosemide [Lasix] 40 mg PO QAM@0600 05/12/17 11/03/19 History Ipratropium-Albuterol Nebulize 1 puff INHALATION RT-QID PRN 05/12/17 11/03/19 History [Duoneb 0.5 mg-3 mg/3 ml Soln] Losartan Potassium [Cozaar] 25 mg PO DAILY 05/12/17 11/03/19 History Metoprolol Tartrate [Lopressor] 50 mg PO BID 05/12/17 11/03/19 History Atorvastatin [Lipitor] 20 mg PO DAILY #30 tablet 05/19/17 11/03/19 Rx Spironolactone [Aldactone] 25 mg PO DAILY #30 tablet 05/19/17 11/03/19 Rx Aspirin/Acetaminophen/Caffeine 2 tab PO ONCE PRN 11/03/19 11/03/19 History [Excedrin Extra Strength Caplet] Fluticasone Propionate 2 spray EA NOSTRIL DAILY 11/03/19 11/03/19 History Furosemide [Lasix] 20 mg PO DAILY@1400 11/03/19 11/03/19 History HYDROcodone/APAP 7.5-325MG [[place] 1 tab PO Q6H PRN 11/03/19 11/03/19 History 7.5-325] predniSONE 5 mg PO DAILY 11/03/19 11/03/19 History Allergies Allergy/AdvReac Type Severity Reaction Status Date / Time sulfamethoxazole Allergy Rash/Hives Verified 11/03/19 12:36 [From Bactrim] trimethoprim [From Bactrim] Allergy Rash/Hives Verified 11/03/19 12:36 Physical Exam Vitals: Vital Signs Temp Pulse Pulse Resp BP BP Pulse Ox 11/03/19 16:30 97.6 F 97 20 139/58 94 L 11/03/19 15:25 22 11/03/19 15:00 98 F 94 24 142/69 94 L 11/03/19 14:18 98 F 103 H 26 H 144/79 11/03/19 14:00 98.2 F 93 20 128/84 96 11/03/19 13:48 98.2 F 91 18 111/86 96 11/03/19 13:40 98.1 F 88 18 116/77 95 11/03/19 13:30 98.1 F 99 18 113/78 96 11/03/19 13:00 98.1 F 97 17 133/81 98 11/03/19 12:30 93 27 H 115/79 96 11/03/19 12:00 82 13 118/75 96 11/03/19 11:40 18 11/03/19 11:30 80 13 117/78 96 11/03/19 11:00 85 19 111/77 93 L 11/03/19 10:30 78 14 108/77 93 L 11/03/19 10:00 80 11 L 108/80 94 L 11/03/19 09:46 106 H 14 96 11/03/19 09:30 98.3 F 100 18 117/76 97 Intake and Output 11/03/19 11/03/19 11/03/19 06:59 14:59 22:59 Intake Total 0 310 Balance 0 310 Intake: Blood Product 0 310 Rc As-1 Unit 0 310 [id number] Other: # Voids 1 1 Weight 86.636 kg PHYSICAL EXAMINATION: Patient is lying in the bed comfortably, no acute distress, awake alert and oriented.. HEENT: Normocephalic. Neck is supple. Pupils reactive. Nostrils clear. Oral cavity is moist. Ears reveal no drainage. Neck reveals no JVD, carotid bruits, or thyromegaly. CHEST EXAMINATION: Trachea is central. Symmetrical expansion. Lung shin clear to auscultation and percussion. CARDIAC: Normal S1, S2 with no gallops. No murmurs ABDOMEN: Soft. Bowel sounds normal. No organomegaly. No abdominal bruits. Extremities: reveal no edema. No clubbing or cyanosis Neurologically awake, alert, oriented x3 with well-coordinated movements. No focal deficits noted Skin: No rash or skin lesions. Psychiatric: Coperative. Nonsuicidal Musculoskeletal: No joint swelling or deformity. Normal range of motion. Results CBC & Chem 7: 11/03/19 09:53 11/03/19 09:53 Labs: Abnormal Lab Results - Last 24 Hours (Table) 11/03/19 11/03/19 11/03/19 Range/Units 09:53 09:53 09:53 RBC 3.44 L (3.80-5.40) m/uL Hgb 7.7 L (11.4-16.0) gm/dL Hct 26.9 L (34.0-46.0) % MCV 78.3 L (80.0-100.0) fL MCH 22.4 L (25.0-35.0) pg MCHC 28.6 L (31.0-37.0) g/dL RDW 15.6 H (11.5-15.5) % APTT 20.8 L (22.0-30.0) sec Chloride 109 H (98-107) mmol/L Carbon Dioxide 19 L (22-30) mmol/L BUN 19 H (7-17) mg/dL Creatinine 1.61 H (0.52-1.04) mg/dL Glucose 113 H (74-99) mg/dL Urine Blood (Negative) Ur Leukocyte Esterase (Negative) Urine RBC (0-5) /hpf Urine WBC (0-5) /hpf Amorphous Sediment (None) /hpf Hyaline Casts (0-2) /lpf Urine Mucus (None) /hpf Stool Occult Blood (Negative) Crossmatch 11/03/19 11/03/19 11/03/19 Range/Units 09:53 10:32 20:20 RBC (3.80-5.40) m/uL Hgb (11.4-16.0) gm/dL Hct (34.0-46.0) % MCV (80.0-100.0) fL MCH (25.0-35.0) pg MCHC (31.0-37.0) g/dL RDW (11.5-15.5) % APTT (22.0-30.0) sec Chloride (98-107) mmol/L Carbon Dioxide (22-30) mmol/L BUN (7-17) mg/dL Creatinine (0.52-1.04) mg/dL Glucose (74-99) mg/dL Urine Blood Trace H (Negative) Ur Leukocyte Esterase Large H (Negative) Urine RBC 8 H (0-5) /hpf Urine WBC 60 H (0-5) /hpf Amorphous Sediment Occasional H (None) /hpf Hyaline Casts 7 H (0-2) /lpf Urine Mucus Rare H (None) /hpf Stool Occult Blood Positive H (Negative) Crossmatch See Detail Thrombosis Risk Factor Assmnt - DVT/VTE Prophylaxis DVT/VTE Prophylaxis: Mechanical Prophylaxis ordered - Choose All That Apply Any of the Below Risk Factors Present?: Yes Each Factor Represents 1 point: Abnormal pulmonary function (COPD), Heart failure (<1month) Other Risk Factors: Yes Each Risk Factor Represents 2 Points: Age 61-74 years Other congenital or acquired thrombophilia - If yes, enter type in comment: No Thrombosis Risk Factor Assessment Total Risk Factor Score: 4 Thrombosis Risk Factor Assessment Level: Moderate Risk Assessment and Plan Assessment: Generalized weakness and tiredness secondary to symptomatic anemia Possible chronic blood loss anemia. Likely GI bleed. FOBT positive. Acute urinary tract infection Acute on chronic kidney disease stage III COPD on home oxygen and steroid-dependent Chronic CHF EF unknown History of AICD placement History of IA Fibromyalgia GERD History of rheumatic fever Anxiety Previous history of smoking DVT prophylaxis with SCDs Plan: Patient will be given 1 unit of PRBC and will check iron studies. Patient will be started on PPI and gastroenterology will be consulted. Continue with gentle hydration. Monitor renal function. Patient will be started on ceftriaxone for UTI tract infection. Follow-up culture reports. Monitor labs tomorrow. Continue with breathing treatments and oxygen therapy and follow closely. Further recommendations based on the clinical course. Time with Patient: Greater than 30
[2019-11-04 00:17] LABS: Anisocytosis Slight; HGB 8.5 gm/dL (11.4-16.0); Hypochromasia Marked; MCH 24.5 pg (25.0-35.0); MCHC 30.2 g/dL (31.0-37.0); MCV 81.2 fL (80.0-100.0); Mean Platelet Volume 8.1; Platelet Count 388 k/uL (150-450); Poikilocytosis Marked; RBC 3.45 m/uL (3.80-5.40); RDW 16.5 % (11.5-15.5); WBC 6.8 k/uL (3.8-10.6)
[2019-11-04] MEDS: SODIUM CHLORIDE 0.9% 1,000 ML IV SCH ×2 (00:59→16:35)
[2019-11-04] MEDS: HYDROcodone/APAP 7.5-325MG 1 EACH TAB PO PRN ×4 (05:07→23:33)
[2019-11-04] MEDS ORDERED: IPRATROPIUM-ALBUTEROL 3 ML NEB INHALATION PRN (05:11)
[2019-11-04 07:40] LABS: Anisocytosis Slight; Basophils % (A) 1 %; Eosinophils # (A) 0.2 k/uL (0-0.7); Eosinophils % (A) 3 %; HCT 28.7 % (34.0-46.0); HGB 8.6 gm/dL (11.4-16.0); Hypochromasia Marked; Lymphocytes # (A) 1.6 k/uL (1.0-4.8); Lymphocytes % (A) 28 %; MCH 24.4 pg (25.0-35.0); MCHC 29.9 g/dL (31.0-37.0); MCV 81.5 fL (80.0-100.0); Mean Platelet Volume 7.5; Monocytes # (A) 0.6 k/uL (0-1.0); Monocytes % (A) 10 %; Neutrophils # (A) 3.1 k/uL (1.3-7.7); Neutrophils % (A) 54 %; Platelet Count 376 k/uL (150-450); Poikilocytosis Moderate; RBC 3.52 m/uL (3.80-5.40); RDW 16.4 % (11.5-15.5); WBC 5.7 k/uL (3.8-10.6)
[2019-11-04 08:01] LABS: Calcium 9.4 mg/dL (8.4-10.2); Potassium 4.9 mmol/L (3.5-5.1)
[2019-11-04] MEDS: IPRATROPIUM-ALBUTEROL 3 ML NEB INHALATION SCH ×4 (08:33→19:54)
[2019-11-04] MEDS: SYMBICORT 160-4.5 MCG INHALER INHALATION SCH ×2 (08:33→19:54)
[2019-11-04] MEDS ORDERED: SPIRONOLACTONE 25 MG TAB PO SCH (09:00)
[2019-11-04] MEDS: predniSONE 5 MG TAB PO SCH (11:07)
[2019-11-04] MEDS: FLUTICASONE 50MCG/SPRAY NASAL 16GM EA NOSTRIL SCH (11:07)
[2019-11-04] MEDS: ATORVASTATIN 20 MG TAB PO SCH (11:07)
[2019-11-04] MEDS: METOPROLOL TARTRATE 50 MG TAB PO SCH ×2 (11:07→21:00)
[2019-11-04 11:50] LABS: % Iron Saturation 3.87 (12.00-45.00)
[2019-11-04 12:59] LABS: Reticulocyte % 2.5 % (0.5-2.0)
[2019-11-04] MEDS ORDERED: FUROSEMIDE 20 MG TAB PO SCH (14:00)
[2019-11-04] MEDS ORDERED: PEG 3350-NA SULF,BICARB,CL/KCL 4,000 ML BOTTLE PO ONE (16:00)
--- NOTE | 2019-11-04 16:50 | CDI ---
Documentation Clarification Form Date: 11/04/2019 04:36:41 PM From: Nhung Palomino RN, CCDS Admit Date: 11/03/2019 12:28:00 PM Patient Name: Zulay Gasca Visit Number: [id number] Discharge Date: ATTENTION: The Clinical Documentation Specialists (CDI) and [facility] Coding Staff appreciate your assistance in clarifying documentation. Please respond to the clarification below the line at the bottom and electronically sign. The CDI & [facility] Coding staff will review the response and follow-up if needed. Please note: Queries are made part of the Legal Health Record. If you have any questions, please contact the author of this message via ITS. Dr. Anita Devi The patient presented on 11/02 with reports of abnormal lab studies, generalized weakness with exertional shortness of breath. History indicates she is uses 2/l oxygen at home and further specificity is requested. History/Risk Factors: COPD, CKD 3, Tobacco use: Former smoker Home oxygen:2/L NC Clinical Indicators: 11/02 present with need for blood transfusion per ED assessment. She has shortness of breath with exertion 11/02@14:18 Vital signs:144/79 103 26 11/02 Pulse oximetry: 94 % RA @ 15:00 Treatment: Transfuse 1 unit PRBC, Monitor Labs: CBC, BUN, CR continue with breathings and oxygen therapy In your professional opinion, can you please clarify if these findings signify one of the following conditions? Acute on Chronic Respiratory Failure Chronic Respiratory Failure Other Diagnosis, please specify Unable to determine Specificity: If known, further specify (if known): With hypercapnia? (pCO2 >50 and pH <7.35) With hypoxia? (pO2 <60 mm Hg or SpO2 <91% on room air) (Last Query Form Revision: February 2019) Chronic Respiratory Failure MTDD
[2019-11-04] MEDS ORDERED: BISACODYL 5 MG TABLET.DR PO ONE (18:00)
--- NOTE | 2019-11-04 20:00 | P.PN ---
Progress Note - Text Progress Note Date: 11/04/19 Chief Complaint: Tiredness history of presenting complaint: Patient is a 69-year-old female with a known history of COPD on home oxygen 2 L as needed, CHF, AICD placement fibromyalgia, GERD, history of [place], anxiety and previous history of smoking came to ER with the complaints of abnormal lab tests and was called from PCPs office to go to ER. Patient was told her hemoglobin was low and also she has acute kidney injury. Patient came to ER for evaluation. Patient had lab work-up done yesterday due to patient's complaint of tiredness and weakness for the past 2 months. Patient is also having decreased appetite. Patient is also having exertional shortness of breath. Denies any hematemesis melena. Denied any hemorrhoids history. Patient had colonoscopy 2 years ago which demonstrated 1 polyp which was removed. Patient does have chronic kidney disease otherwise. Patient is supposed to follow-up with Dr. Floyd's office however due to dynamic she has been unable to do so. Patient denied any complaints of chest pain. No shortness of breath at rest. No cough or sputum production. Denied any hemoptysis. Denied any dysuria or hematuria. Denied any focal weakness. No complaints of dizziness or lightheadedness Admitted with-weakness and tiredness from symptomatic anemia. [place] to be possible chronic blood loss. Possibly GI bleed.on November 02 received a unit of blood. Today-laying in bed. Less tired. Awaiting GI input. Feels a bit better. Review of systems: Was done for constitutional, cardiovascular, GI, pulmonary. relevant finding as above Active Medications Hydrocodone Bitart/Acetaminophen ([place] 7.5-325) 1 each PO Q6H PRN PRN Reason: Pain Last Admin: 11/04/19 17:38 Dose: 1 each Documented by: Albuterol/Ipratropium (Duoneb 0.5 Mg-3 Mg/3 Ml Soln) 3 ml INHALATION RT-QID IDA Last Admin: 11/04/19 19:54 Dose: 3 ml Documented by: Albuterol/Ipratropium (Duoneb 0.5 Mg-3 Mg/3 Ml Soln) 3 ml INHALATION RT-Q2H PRN PRN Reason: Shortness Of Breath Or Wheezing Last Admin: 11/04/19 05:56 Dose: 3 ml Documented by: Atorvastatin Calcium (Lipitor) 20 mg PO DAILY [facility] Last Admin: 11/04/19 11:07 Dose: 20 mg Documented by: Budesonide/Formoterol Fumarate (Symbicort 160-4.5 Mcg Inhaler) 2 puff INHALATION RT-BID [facility] Last Admin: 11/04/19 19:54 Dose: 2 puff Documented by: Fluticasone Propionate (Flonase Nasal [place]) 2 spray EA NOSTRIL DAILY [facility] Last Admin: 11/04/19 11:07 Dose: 2 spray Documented by: Sodium Chloride (Saline 0.9%) 1,000 mls @ 75 mls/hr IV .[id number] [facility] Last Admin: 11/04/19 16:35 Dose: 75 mls/hr Documented by: Ceftriaxone Sodium 1 gm/ (Sodium Chloride) 50 mls @ 100 mls/hr IVPB Q24H [facility] Last Admin: 11/04/19 00:59 Dose: 100 mls/hr Documented by: Metoprolol Tartrate (Lopressor) 50 mg PO BID [facility] Last Admin: 11/04/19 11:07 Dose: 50 mg Documented by: Naloxone HCl (Narcan) 0.2 mg IV Q2M PRN PRN Reason: Opioid Reversal Prednisone () 5 mg PO DAILY [facility] Last Admin: 11/04/19 11:07 Dose: 5 mg Documented by: On examination: VITAL SIGNS: [98.2, 89, 17, 116/79, 97% on room air] GENERAL APPEARANCE: laying in bed, but tired HEENT: Normal external appearance of nose and ear. Oral cavity normal EYES: Pupils equal. Conjunctiva pale. NECK: JVD not raised. Mass not palpable. RESPIRATORY: Respiratory effort normal. Lungs clear to auscultation. CARDIOVASCULAR: First and second sounds normal. No edema. ABDOMEN: Soft. Liver and spleen not palpable. No tenderness. No mass palpable. PSYCHIATRY: Alert and oriented x3. Mood and affect tired INVESTIGATIONS, reviewed in the clinical context: white count 5.7 hemoglobin 8.6 pressure 4.9 bun 18 creatinine 1.28 previous testing: Potassium 4.8 creatinine 1.61hemoglobin 8.5 white count 6.8 Assessment: -Symptomatic anemia, patient been given a unit of blood. -Suspect chronic GI blood loss. GI consultation in place -chronic kidney disease stage III -Iron deficiency anemia from above -COPD in an ex-smoker -Chronic fibromyalgia -GERD -Scoliosis -Permanent pacemaker/AICD -Rheumatoid arthritis -Peripheral neuropathy -Chronic congestive heart failure from systolic dysfunction EF not known Plan: Patient receive a unit of blood yesterday. Awaiting GI input. Other medication treatment plan to continue.add sodium bicarbonate
[2019-11-04 20:08] LABS: Folate, Serum 8.2 ng/mL
[2019-11-04 20:16] LABS: Ferritin 4.2 ng/mL (10.0-291.0)
[2019-11-04] MEDS: SODIUM BICARBONATE TAB 650 MG TAB PO SCH (21:59)
--- NOTE | 2019-11-04 22:09 | P.CONS ---
History of Present Illness - Reason for Consult Consult date: 11/04/19 Anemia Requesting physician: Mike Zarate - Chief Complaint Anemia - History of Present Illness 69-year-old female with a medical history significant for COPD on home oxygen, AICD placement, fibromyalgia, GERD, history of myocardial infarction, anxiety and prior tobacco abuse presented to the hospital due to abnormal lab testing. The patient had been complaining of shortness of breath and weakness for the past 2 months. She also reports decreased appetite. She had outpatient testing which was significant for anemia and was told to present to the hospital. She d enies any gross blood per rectum, melena or abdominal pain. She has been tolerating diet. She reports colonoscopy 2-3 years ago significant for polypectomy. No prior EGD per her recollection. No NSAID use reported. Stool testing was positive for blood. Hemoglobin was 7.7 on presentation with iron studies significant for deficiency. Review of Systems REVIEW OF SYSTEMS: CONSTITUTIONAL: Denies any fevers, chills, weight change but does report fatigue and tiredness CARDIOVASCULAR: Denies any chest pain, palpitations high or low blood pressures RESPIRATORY: Denies any , cirrhosis and cough, but does report shortness of breath and has a known history of COPD on home oxygen therapy. GENITOURINARY: No dysuria or hematuria. MUSCULOSKELETAL: No weakness reported. SKIN: Denies any new rashes or lesions, jaundice or pallor. PSYCHIATRIC: Denies any depression or anxiety. NEUROLOGY: Denies headache, denies any new focal deficits. EARS/NOSE/THROAT: No recent hearing change, congestion, nasal discharge or sore throat. EYES: No pain in eyes, discharge or change in vision. GASTROINTESTINAL: As per HPI. Past Medical History Past Medical History: Heart Failure, COPD, Fibromyalgia, GERD/Reflux, Myocardial Infarction ([place]), Renal Disease Additional Past Medical History / Comment(s): HX RHEUMATIC FEVER, SCOLIOSIS, varicose veins, "kidney failure when in [place] Feb 2015 Last Myocardial Infarction Date:: History of Any Multi-Drug Resistant Organisms: None Reported Past Surgical History: AICD, Heart Catheterization, Pacemaker, Tubal Ligation Additional Past Surgical History / Comment(s): rt breast cyst removed- benign, hemorrhoidectomy cardiac pacer/ defibulator Past Anesthesia/Blood Transfusion Reactions: No Reported Reaction Additional Past Anesthesia/Blood Transfusion Reaction / Comm: . Type of Cardiac Device: Permanent Pacemaker, AICD Device Placement Date:: 2015 Past Psychological History: Anxiety Additional Psychological History / Comment(s): CLAUSTROPHOBIA, ANXIETY R/T PROCEDURES Smoking Status: Former smoker Past Alcohol Use History: None Reported Additional Past Alcohol Use History / Comment(s): quit smoking 3 yrs ago, smoked for 45 yrs, < 1 PPD Past Drug Use History: None Reported - Past Family History Father Family Medical History: Cancer Additional Family Medical History / Comment(s): . Mother Family Medical History: Cancer, Congestive Heart Failure (CHF), Myocardial Infarction ([place]) Additional Family Medical History / Comment(s): BREAST Medications and Allergies Home Medications Medication Instructions Recorded Confirmed Type Aspirin 81 mg PO DAILY 11/21/14 11/03/19 History Famotidine [Pepcid] 20 mg PO BID 11/21/14 11/03/19 History Fluticasone/Salmeterol [Advair Hfa 2 puff INHALATION RT-BID 05/12/17 11/03/19 History 230-21 Mcg Inhaler] Furosemide [Lasix] 40 mg PO QAM@0600 05/12/17 11/03/19 History Ipratropium-Albuterol Nebulize 1 puff INHALATION RT-QID PRN 05/12/17 11/03/19 History [Duoneb 0.5 mg-3 mg/3 ml Soln] Losartan Potassium [Cozaar] 25 mg PO DAILY 05/12/17 11/03/19 History Metoprolol Tartrate [Lopressor] 50 mg PO BID 05/12/17 11/03/19 History Atorvastatin [Lipitor] 20 mg PO DAILY #30 tablet 05/19/17 11/03/19 Rx Spironolactone [Aldactone] 25 mg PO DAILY #30 tablet 05/19/17 11/03/19 Rx Aspirin/Acetaminophen/Caffeine 2 tab PO ONCE PRN 11/03/19 11/03/19 History [Excedrin Extra Strength Caplet] Fluticasone Propionate 2 spray EA NOSTRIL DAILY 11/03/19 11/03/19 History Furosemide [Lasix] 20 mg PO DAILY@1400 11/03/19 11/03/19 History HYDROcodone/APAP 7.5-325MG [[place] 1 tab PO Q6H PRN 05/13/20 05/13/20 History 7.5-325] predniSONE 5 mg PO DAILY 11/03/19 11/03/19 History Allergies Allergy/AdvReac Type Severity Reaction Status Date / Time sulfamethoxazole Allergy Rash/Hives Verified 11/03/19 12:36 [From Bactrim] trimethoprim [From Bactrim] Allergy Rash/Hives Verified 11/03/19 12:36 Physical Exam Vitals: Vital Signs Temp Pulse Pulse Resp BP BP Pulse Ox 11/04/19 08:49 116 H 11/04/19 08:33 120 H 11/04/19 06:04 92 11/04/19 05:56 92 11/04/19 05:00 98.1 F 103 H 20 125/78 99 11/04/19 00:00 63 20 11/03/19 21:54 102 H 11/03/19 21:45 103 H 97 11/03/19 21:00 97.9 F 63 20 132/88 97 11/03/19 16:30 97.6 F 97 20 139/58 94 L 11/03/19 15:25 22 11/03/19 15:00 98 F 94 24 142/69 94 L 11/03/19 14:18 98 F 103 H 26 H 144/79 11/03/19 14:00 98.2 F 93 20 128/84 96 11/03/19 13:48 98.2 F 91 18 111/86 96 11/03/19 13:40 98.1 F 88 18 116/77 95 11/03/19 13:30 98.1 F 99 18 113/78 96 11/03/19 13:00 98.1 F 97 17 133/81 98 11/03/19 12:30 93 27 H 115/79 96 11/03/19 12:00 82 13 118/75 96 11/03/19 11:40 18 11/03/19 11:30 80 13 117/78 96 11/03/19 11:00 85 19 111/77 93 L 11/03/19 10:30 78 14 108/77 93 L 11/03/19 10:00 80 11 L 108/80 94 L Intake and Output 11/03/19 11/04/19 11/04/19 22:59 06:59 14:59 Intake Total 560 550 Balance 560 550 Intake: Intake, IV Titration 550 Amount Sodium Chloride 0.9% 1, 450 000 ml @ 75 mls/hr IV . [id number] IDA Rx#:[id number] cefTRIAXone 1 gm In 100 Sodium Chloride 0.9% 50 ml @ 100 mls/hr IVPB Q24H IDA Rx#:[id number] Oral 250 Blood Product 310 Rc As-1 Unit 310 [id number] Other: Voiding Method Bedside Commode # Voids 1 1 On physical examination, patient appears comfortable in no apparent distress. HEAD: Normocephalic, atraumatic. EYES: No scleral icterus. No conjunctival injection. MOUTH: No lesions, tongue midline. NECK: Trachea midline, no gross abnormalities. CHEST: Decreased air entry in all lung shin. HEART: Regular rate and rhythm. ABDOMEN: Soft, nontender to palpation. Bowel sounds are positive. No organomegaly. No guarding or rigidity. EXTREMITIES: No pedal edema. SKIN: No rashes, no jaundice. NEUROLOGIC: Alert and oriented x3. No focal deficits. Results CBC & Chem 7: 11/04/19 07:04 11/04/19 07:04 Labs: Abnormal Lab Results - Last 24 Hours (Table) 11/03/19 11/03/19 11/03/19 Range/Units 09:53 09:53 09:53 RBC 3.44 L (3.80-5.40) m/uL Hgb 7.7 L (11.4-16.0) gm/dL Hct 26.9 L (34.0-46.0) % MCV 78.3 L (80.0-100.0) fL MCH 22.4 L (25.0-35.0) pg MCHC 28.6 L (31.0-37.0) g/dL RDW 15.6 H (11.5-15.5) % APTT 20.8 L (22.0-30.0) sec Chloride 109 H (98-107) mmol/L Carbon Dioxide 19 L (22-30) mmol/L BUN 19 H (7-17) mg/dL Creatinine 1.61 H (0.52-1.04) mg/dL Glucose 113 H (74-99) mg/dL Urine Blood (Negative) Ur Leukocyte Esterase (Negative) Urine RBC (0-5) /hpf Urine WBC (0-5) /hpf Amorphous Sediment (None) /hpf Hyaline Casts (0-2) /lpf Urine Mucus (None) /hpf Stool Occult Blood (Negative) Crossmatch 11/03/19 11/03/19 11/03/19 Range/Units 09:53 10:32 20:20 RBC (3.80-5.40) m/uL Hgb (11.4-16.0) gm/dL Hct (34.0-46.0) % MCV (80.0-100.0) fL MCH (25.0-35.0) pg MCHC (31.0-37.0) g/dL RDW (11.5-15.5) % APTT (22.0-30.0) sec Chloride (98-107) mmol/L Carbon Dioxide (22-30) mmol/L BUN (7-17) mg/dL Creatinine (0.52-1.04) mg/dL Glucose (74-99) mg/dL Urine Blood Trace H (Negative) Ur Leukocyte Esterase Large H (Negative) Urine RBC 8 H (0-5) /hpf Urine WBC 60 H (0-5) /hpf Amorphous Sediment Occasional H (None) /hpf Hyaline Casts 7 H (0-2) /lpf Urine Mucus Rare H (None) /hpf Stool Occult Blood Positive H (Negative) Crossmatch See Detail 11/03/19 11/04/19 11/04/19 Range/Units 23:54 07:04 07:04 RBC 3.45 L 3.52 L (3.80-5.40) m/uL Hgb 8.5 L 8.6 L (11.4-16.0) gm/dL Hct 28.0 L 28.7 L (34.0-46.0) % MCV (80.0-100.0) fL MCH 24.5 L 24.4 L (25.0-35.0) pg MCHC 30.2 L 29.9 L (31.0-37.0) g/dL RDW 16.5 H 16.4 H (11.5-15.5) % APTT (22.0-30.0) sec Chloride 109 H (98-107) mmol/L Carbon Dioxide 20 L (22-30) mmol/L BUN 18 H (7-17) mg/dL Creatinine 1.28 H (0.52-1.04) mg/dL Glucose 102 H (74-99) mg/dL Urine Blood (Negative) Ur Leukocyte Esterase (Negative) Urine RBC (0-5) /hpf Urine WBC (0-5) /hpf Amorphous Sediment (None) /hpf Hyaline Casts (0-2) /lpf Urine Mucus (None) /hpf Stool Occult Blood (Negative) Crossmatch Microbiology - Last 24 Hours (Table) 11/03/19 20:20 Urine Culture - Preliminary Urine,Clean Catch Chest x-ray: report reviewed (No acute pulmonary process on chest x-ray, but findings consistent with COPD.) Assessment and Plan (1) Iron deficiency anemia Narrative/Plan: 69-year-old female with multiple medical comorbidities presenting to the hospital due to abnormal laboratory evaluation with anemia noted. Iron studies consistent with iron deficiency anemia. She denies any signs of GI bleed with no melena, hematochezia or hematemesis reported. No abdominal pain reported. Did have stool testing positive for blood. Last colonoscopy 2-3 years ago significant for polypectomy. Plan is for endoscopic evaluation to rule out component of GI bleed. Current Visit: Yes Status: Acute Code(s): D50.9 - IRON DEFICIENCY ANEMIA, UNSPECIFIED SNOMED Code(s): 51935379 Plan: Supportive care Clear liquid diet Nothing by mouth after midnight Plan for EGD and colonoscopy tomorrow for further evaluation IV iron therapy ordered Continue monitor stool output Thank you for allowing us to participate in the care of the patient we will continue to follow
[2019-11-04] MEDS: SODIUM FERRIC GLUCONAT-SUCROSE 125 MG in SODIUM CHLORIDE 0.9% 100 ML IVPB SCH (22:54)
[2019-11-05 06:40] LABS: Anisocytosis Slight; HCT 26.9 % (34.0-46.0); HGB 7.9 gm/dL (11.4-16.0); Hypochromasia Marked; MCH 23.6 pg (25.0-35.0); MCHC 29.5 g/dL (31.0-37.0); MCV 80.1 fL (80.0-100.0); Mean Platelet Volume 7.9; Platelet Count 342 k/uL (150-450); Poikilocytosis Moderate; RBC 3.36 m/uL (3.80-5.40); RDW 17.9 % (11.5-15.5); WBC 5.2 k/uL (3.8-10.6)
[2019-11-05] MEDS: IPRATROPIUM-ALBUTEROL 3 ML NEB INHALATION SCH ×2 (07:09→11:09)
[2019-11-05] MEDS: SYMBICORT 160-4.5 MCG INHALER INHALATION SCH (07:09)
[2019-11-05] MEDS: SODIUM FERRIC GLUCONAT-SUCROSE 125 MG in SODIUM CHLORIDE 0.9% 100 ML IVPB SCH (08:16)
[2019-11-05] MEDS ORDERED: HYDROmorphone 0.5 MG/0.5 ML SYRINGE IVP STA (08:47)
[2019-11-05] MEDS: METOPROLOL TARTRATE 50 MG TAB PO SCH (09:59)
[2019-11-05] MEDS ORDERED: PROPOFOL 10 MG/ML 20 ML VIAL IV ONE (10:00)
[2019-11-05] MEDS ORDERED: LIDOCAINE 1% INJ 10MG/ML (20 ML MDV) ONE (10:00)
[2019-11-05] MEDS ORDERED: IV FLUID CONTINUATION 1,000 ML IV ONE (10:02)
[2019-11-05 12:15] VITALS: BP 121/79; RESP 18; TEMP 97.7
[2019-11-05 12:37] VITALS: PULSE 103
[2019-11-05] MEDS: predniSONE 5 MG TAB PO SCH (12:45)
[2019-11-05] MEDS: FLUTICASONE 50MCG/SPRAY NASAL 16GM EA NOSTRIL SCH (12:45)
[2019-11-05] MEDS: SODIUM BICARBONATE TAB 650 MG TAB PO SCH (12:46)
[2019-11-05] MEDS: ATORVASTATIN 20 MG TAB PO SCH (12:46)
[2019-11-05 14:47] LABS: Calcium 9.1 mg/dL (8.4-10.2)
--- NOTE | 2019-11-05 22:53 | P.DS ---
Providers Date of admission: 11/03/19 12:28 Expected date of discharge: 11/05/19 Attending physician: Mike Zarate Consults: 11/03/19 14:23 Consult Physician Routine Consulting Provider: Veronica Mcdonald Consult Reason/Comments: anemia Do you want consulting provider notified?: Already Contacted Primary care physician: [facility] Course: Chief Complaint: Tiredness history of presenting complaint: Patient is a 69-year-old female with a known history of COPD on home oxygen 2 L as needed, CHF, AICD placement fibromyalgia, GERD, history of [place], anxiety and previous history of smoking came to ER with the complaints of abnormal lab tests and was called from PCPs office to go to ER. Patient was told her hemoglobin was low and also she has acute kidney injury. Patient came to ER for evaluation. Patient had lab work-up done yesterday due to patient's complaint of tiredness and weakness for the past 2 months. Patient is also having decreased appetite. Patient is also having exertional shortness of breath. Denies any hematemesis melena. Denied any hemorrhoids history. Patient had colonoscopy 2 years ago which demonstrated 1 polyp which was removed. Patient does have chronic kidney disease otherwise. Patient is supposed to follow-up with Dr. Floyd's office however due to dynamic she has been unable to do so. Patient denied any complaints of chest pain. No shortness of breath at rest. No cough or sputum production. Denied any hemoptysis. Denied any dysuria or hematuria. Denied any focal weakness. No complaints of dizziness or lightheadedness Admitted with-weakness and tiredness from symptomatic anemia. [place] to be possible chronic blood loss. Possibly GI bleed.on November 02 received a unit of blood. Today-underwent EGD. Results discussed with Dr. Wood. Gastritis. Hernia. Patient to be placed on PPI. Discussed the results the patient. Stable for discharge. Discussed with the patient. Discussion and discharge planning more than 35 minutes Consultation: Dr. Wood from GI On examination: VITAL SIGNS: 97.7, 100, 18, 100 2281, 96% room air GENERAL APPEARANCE: laying in bed, but tired HEENT: Normal external appearance of nose and ear. Oral cavity normal EYES: Pupils equal. Conjunctiva pale. NECK: JVD not raised. Mass not palpable. RESPIRATORY: Respiratory effort normal. Lungs clear to auscultation. CARDIOVASCULAR: First and second sounds normal. No edema. ABDOMEN: Soft. Liver and spleen not palpable. No tenderness. No mass palpable. PSYCHIATRY: Alert and oriented x3. Mood and affect tired INVESTIGATIONS, reviewed in the clinical context: White count 5.2 hemoglobin 7.9 potassium 4 pressure 1.08 previous testing: Potassium 4.8 creatinine 1.61hemoglobin 8.5 white count 6.8 Assessment: -Symptomatic anemia, patient been given a unit of blood. POA -Suspect chronic GI blood loss.-Chronic gastritis -chronic kidney disease stage III -Iron deficiency anemia from above -COPD in an ex-smoker -Chronic fibromyalgia -GERD -Scoliosis -Permanent pacemaker/AICD -Rheumatoid arthritis -Peripheral neuropathy -Chronic congestive heart failure from systolic dysfunction EF not known Disposition: Home Patient Condition at Discharge: Stable Plan - Discharge Summary Discharge Rx Participant: No New Discharge Prescriptions: New Cefuroxime Axetil [Ceftin] 500 mg PO BID 3 Days #6 tab Omeprazole [PriLOSEC] 20 mg PO AC-BID #60 cap Sodium Bicarbonate Tab 650 mg PO TID #30 tab Continue Aspirin 81 mg PO DAILY Fluticasone/Salmeterol [Advair Hfa 230-21 Mcg Inhaler] 2 puff INHALATION RT- BID Metoprolol Tartrate [Lopressor] 50 mg PO BID Ipratropium-Albuterol Nebulize [Duoneb 0.5 mg-3 mg/3 ml Soln] 1 puff INHALATION RT-QID PRN PRN Reason: sob Atorvastatin [Lipitor] 20 mg PO DAILY #30 tablet Spironolactone [Aldactone] 25 mg PO DAILY #30 tablet HYDROcodone/APAP 7.5-325MG [[place] 7.5-325] 1 tab PO Q6H PRN PRN Reason: Pain Fluticasone Propionate 2 spray EA NOSTRIL DAILY predniSONE 5 mg PO DAILY Discontinued Famotidine [Pepcid] 20 mg PO BID Losartan Potassium [Cozaar] 25 mg PO DAILY Furosemide [Lasix] 40 mg PO QAM@0600 Furosemide [Lasix] 20 mg PO DAILY@1400 Aspirin/Acetaminophen/Caffeine [Excedrin Extra Strength Caplet] 2 tab PO ONCE PRN PRN Reason: Migraine Headache Discharge Medication List Aspirin 81 mg PO DAILY 11/21/14 [History] Fluticasone/Salmeterol [Advair Hfa 230-21 Mcg Inhaler] 2 puff INHALATION RT-BID 05/12/17 [History] Ipratropium-Albuterol Nebulize [Duoneb 0.5 mg-3 mg/3 ml Soln] 1 puff INHALATION RT-QID PRN 05/12/17 [History] Metoprolol Tartrate [Lopressor] 50 mg PO BID 05/12/17 [History] Atorvastatin [Lipitor] 20 mg PO DAILY #30 tablet 05/19/17 [Rx] Spironolactone [Aldactone] 25 mg PO DAILY #30 tablet 05/19/17 [Rx] Fluticasone Propionate 2 spray EA NOSTRIL DAILY 11/03/19 [History] HYDROcodone/APAP 7.5-325MG [[place] 7.5-325] 1 tab PO Q6H PRN 11/03/19 [History] predniSONE 5 mg PO DAILY 11/03/19 [History] Cefuroxime Axetil [Ceftin] 500 mg PO BID 3 Days #6 tab 11/05/19 [Rx] Omeprazole [PriLOSEC] 20 mg PO AC-BID #60 cap 11/05/19 [Rx] Sodium Bicarbonate Tab 650 mg PO TID #30 tab 11/05/19 [Rx] Follow up Appointment(s)/Referral(s): Isai Castle MD [Primary Care Provider] - 11/18/19 2:40 pm Jelani Beavers MD [STAFF PHYSICIAN] - 3 Weeks (The office stated it was after hours please call friday to schedule your follow up appointment .) Patient Instructions/Handouts: Cefuroxime (By mouth), Omeprazole (By mouth), Sodium Bicarbonate (By mouth), Iron Deficiency Anemia (DC) Activity/Diet/Wound Care/Special Instructions: cbc - 1 week LOW FIBER DIET REVIEW YOUR DIET ON YOUR FIRST OFFICE VISIT. CALL Dr. BEAVERS OFFICE ON FRIDAY TO schedule an appointment Discharge Disposition: HOME SELF-CARE
--- NOTE | 2019-11-06 15:34 | P.PCN ---
Date of Procedure: 11/05/19 Description of Procedure: Brief history: 69-year-old female with a medical history significant for COPD on home oxygen, AICD placement, fibromyalgia, GERD, history of myocardial infarction, anxiety and prior tobacco abuse presented to the hospital due to abnormal lab testing. The patient had been complaining of shortness of breath and weakness for the past 2 months. She also reports decreased appetite. She had outpatient testing which was significant for anemia and was told to present to the hospital. She denies any gross blood per rectum, melena or abdominal pain. She has been tolerating diet. She reports colonoscopy 2-3 years ago significant for polypectomy. No prior EGD per her recollection. No NSAID use reported. Stool testing was positive for blood. Hemoglobin was 7.7 on presentation with iron studies significant for deficiency. Procedure performed: Esophagogastroduodenoscopy with biopsy Colonoscopy with foreign body removal Estimated blood loss: Minimal. Preoperative diagnosis: Iron deficiency anemia Anesthesia: MAC Procedure: After informed consent was obtained from the patient was brought into the endoscopy unit and IV sedation was administered by anesthesia under continuous monitoring. Initially upper endoscopy was done. The Olympus GF 190 video endos cope was inserted into the mouth and esophagus intubated without any difficulty and was gradually advanced into the stomach and duodenum and carefully examined. The bulb and second part of the duodenum appeared normal, with biopsies taken. The scope was then withdrawn into the stomach adequately insufflated with air and upon careful examination the antrum and body, cardia and fundus appeared no rmal, except for moderate erythema and superficial erosions in the antrum and body suggestive of moderate gastritis with biopsies taken. The scope was then withdrawn into the esophagus. The GE junction was located at 31 cm to the incisors, with a large 6 cm hiatal hernia noted. It appeared regular with no erythema erosions or ulcerations. Rest of the esophagus appeared normal. Patient tolerated the procedure well. At this time the patient continued to remain sedation. Initial digital rectal examination was normal. Olympus CF 190 video colonoscope was then inserted into the rectum and gradually advanced to the cecum without any difficulty. Careful examination was performed as the scope was gradually being withdrawn. The prep was excellent. The cecum, ascending colon, transverse colon, descending colon, sigmoid colon and rectum appeared normal. In the cecum a chandana earring was noted, a Lowe net was used to retrieve the foreign body and it was removed. Multiple small and large mouth diverticula noted in the left colon. Low-grade internal hemorrhoids seen. A few scattered polyps were noted in the colon and not removed due to foreign body removal. Retroflexion was performed in the rectum and no lesions were noted. Patient tolerated the procedure well. Impression: 1. Moderate gastritis antrum body, biopsied. Duodenal biopsies. Large hiatal hernia. 2. Foreign body retrieved with Lowe net from the cecum and removed from the colon. A few scattered subcentimeter polyps noted throughout the colon not removed due to foreign body removal. Moderate left colonic diverticulosis. Low grade internal hemorrhoids. Recommendations: Findings of this examination were discussed with the patient. Okay to resume diet. Okay to resume medications. Await pathology from biopsies. Would recommend repeat colonoscopy in 1 year for polypectomy. Continue iron supplementation.
== END 2019-11-05 15:31 | disposition home or self-care (01) | DRG 378 ==
LOC: EC 09:26 → 5NMEDONC 12:28
PROVIDERS: ADMIT Hospitalist; ATTEND Hospitalist
PROC: 0DCH8ZZ Extirpation of Matter from Cecum, Via Natural or Artificial Opening Endoscopic (ICD-10-PCS; principal; 2019-11-05 09:30)
PROC: 0DB98ZX Excision of Duodenum, Via Natural or Artificial Opening Endoscopic, Diagnostic (ICD-10-PCS; principal; 2019-11-05 09:30)
PROC: 0DB68ZX Excision of Stomach, Via Natural or Artificial Opening Endoscopic, Diagnostic (ICD-10-PCS; principal; 2019-11-05 09:30)
PROC: 30233N1 Transfusion of Nonautologous Red Blood Cells into Peripheral Vein, Percutaneous Approach (ICD-10-PCS; 2019-11-05 09:30)
DX: K29.51 Unspecified chronic gastritis with bleeding (principal); N17.9 Acute kidney failure, unspecified; I50.22 Chronic systolic (congestive) heart failure; N39.0 Urinary tract infection, site not specified; J96.10 Chronic respiratory failure, unspecified whether with hypoxia or hypercapnia; J44.9 Chronic obstructive pulmonary disease, unspecified; K21.9 Gastro-esophageal reflux disease without esophagitis; G62.9 Polyneuropathy, unspecified; D50.9 Iron deficiency anemia, unspecified; M06.9 Rheumatoid arthritis, unspecified; K64.8 Other hemorrhoids; M41.9 Scoliosis, unspecified; N18.3 Chronic kidney disease, stage 3 (moderate); K44.9 Diaphragmatic hernia without obstruction or gangrene; K57.30 Diverticulosis of large intestine without perforation or abscess without bleeding; M79.7 Fibromyalgia; I25.2 Old myocardial infarction; Z11.59 Encounter for screening for other viral diseases; Z98.51 Tubal ligation status; Z98.890 Other specified postprocedural states; Z79.52 Long term (current) use of systemic steroids; Z79.51 Long term (current) use of inhaled steroids; Z79.82 Long term (current) use of aspirin; Z79.899 Other long term (current) drug therapy; Z82.49 Family history of ischemic heart disease and other diseases of the circulatory system; Z87.891 Personal history of nicotine dependence; Z95.810 Presence of automatic (implantable) cardiac defibrillator; Z99.81 Dependence on supplemental oxygen; Z88.2 Allergy status to sulfonamides
CPT/HCPCS: 36415; 36430; 43239; 45379; 71046; 80048; 80053; 81001; 82272; 82607; 82728; 82746; 83540; 83550; 83605; 84484; 85025; 85027; 85045; 85610; 85730; 86850; 86900; 86901; 86920; 87086; 87635; 88305; 93005; 94640; 94760; 99285